=== PATIENT | male | born 1970 | race Caucasian/White ===

== ENCOUNTER 2016-06-05 00:53 | Emergency (ER) | payer SELFPAY ==
--- NOTE | 2016-06-05 03:06 | ER Document Report ---
ED Neck/Back Problem - General Chief Complaint: Low Back Pain Stated Complaint: LOWER BACK INJURY Time seen by provider: 03:05 Mode of Arrival: Ambulatory Information source: Patient Notes: 46-year-old male presents to ED for back pain since Friday. He states he tripped over a root on the ground Friday and the back pain started Friday or Friday. No history of back pain in the past. Denies any incontinence of urine or stool denies any Problems Urinating or Having Bowel Movements. Denies Any Saddle Anesthesia. TRAVEL OUTSIDE OF THE [place] IN LAST 30 DAYS: No - HPI Patient complains to provider of: Pain, Lower back Onset: Last week Where: Home, Outdoors Onset: Gradual Timing: Still present Quality of pain: Sharp Severity: Moderate Pain Level: 4 Context: Fall/near-fall - On Friday last week Recent injury: Possibly Associated symptoms: Radiation to leg - Left leg, Lower back pain. denies: Constipation, Incontinence, Motor loss, Numbness/tingling, Sensory loss, Unable to urinate Exacerbated by: Movement of trunk Relieved by: Nothing Similar symptoms previously: No Recently seen / treated by doctor: No - Related Data Allergies/Adverse Reactions: azithromycin [From Zithromax Z-Demarcus] Allergy (Mild, Verified 06/05/16 01:22) cyclobenzaprine [From Flexeril] Allergy (Mild, Verified 06/05/16 01:22) ketorolac [From Toradol] Allergy (Mild, Verified 06/05/16 01:23) tramadol [From Ultram] Allergy (Mild, Verified 06/05/16 01:22) Past Medical History - General Information source: Patient - Social History Smoking Status: Current Every Day Smoker Cigarette use (# per day): Yes - pack per day Chew tobacco use (# tins/day): No Smoking Education Provided: Yes - less than 2 minutes Frequency of alcohol use: None Drug Abuse: None Occupation: none Lives with: Family Family History: CAD, CVA, Hyperlipidemia, Hypertension, Malignancy, Thyroid Disfunction Patient has suicidal ideation: No Patient has homicidal ideation: No - Past Medical History Cardiac Medical History: Reports: None Pulmonary Medical History: Reports: None EENT Medical History: Reports: None Endocrine Medical History: Reports: None Renal/ Medical History: Reports: None Malignancy Medical History: Reports None GI Medical History: Reports: None Musculoskeltal Medical History: Reports None Skin Medical History: Reports None Psychiatric Medical History: Reports: None Traumatic Medical History: Reports: None Infectious Medical History: Reports: None Surgical Hx: Negative Past Surgical History: Reports: None Review of Systems - Review of Systems Constitutional: No symptoms reported EENT: No symptoms reported Cardiovascular: No symptoms reported Respiratory: No symptoms reported Gastrointestinal: No symptoms reported Genitourinary: No symptoms reported Male Genitourinary: No symptoms reported Musculoskeletal: Back pain, Muscle pain, Muscle stiffness Skin: No symptoms reported Hematologic/Lymphatic: No symptoms reported Neurological/Psychological: No symptoms reported -: Yes All other systems reviewed and negative Physical Exam - Vital signs Vitals: Temp Pulse Resp BP Pulse Ox 98.9 F 81 20 122/55 L 99 06/05/16 01:06/05/16 01:29 06/05/16 01:29 06/05/16 01:06/05/16 01:29 Interpretation: Normal - General General appearance: Appears well, Alert - HEENT Head: Normocephalic, Atraumatic Eyes: Normal Pupils: PERRL - Respiratory Respiratory status: No respiratory distress Chest status: Nontender Breath sounds: Normal Chest palpation: Normal - Cardiovascular Rhythm: Regular Heart sounds: Normal auscultation Murmur: No - Abdominal Inspection: Normal Distension: No distension Bowel sounds: Normal Tenderness: Nontender Organomegaly: No organomegaly - Back Back: Normal, Vertebra tenderness. No: Deformity/step-off, CVA tenderness, Scars, Scoliosis, Wounds - Extremities General upper extremity: Normal inspection, Nontender, Normal color, Normal ROM , Normal temperature General lower extremity: Normal inspection, Nontender, Normal color, Normal ROM , Normal temperature, Normal weight bearing. 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 Written report given to patient. Patient treated with a dispense pack of hydrocodone instructed to find a primary doctor to follow-up with. Patient encouraged to do back exercises use ice and heat and Tylenol and use the hydrocodone only for severe pain. - Vital Signs Vital signs: Temp Pulse Resp BP Pulse Ox 97.6 F 68 16 107/62 98 06/05/16 04:22 06/05/16 04:22 06/05/16 04:22 06/05/16 04:06/05/16 04:22 - Diagnostic Test Radiology reviewed: Image reviewed, Reports reviewed Discharge - Discharge Clinical Impression: Low back pain Qualifiers: Chronicity: acute Back pain laterality: bilateral Sciatica presence: with sciatica Sciatica laterality: sciatica of left side Qualified Code(s): M54.42 - Lumbago with sciatica, left side Condition: Stable Disposition: HOME, SELF-CARE Instructions: Stretching Exercises for the Back ([facility]), Family Physicians / Practices Additional Instructions: LOW BACK PAIN: Three out of every four people will have an episode of disabling back pain during their lifetime. Most commonly the pain is due to straining of the muscles and ligaments in the low back. Usual treatment includes: (1) Rest on a firm surface. Avoid lying on your stomach. (2) Ice pack the painful area. After a few days, gentle heat may be used intermittently to relax the area, or ice packs can be continued. (3) Medication may be needed -- muscle relaxers and antiinflammatory medicines are commonly used. (4) As the back improves, exercises are prescribed to strengthen the back and abdominal muscles. Your doctor will advise you on the proper care for your back at each stage in your recovery. You may be better in a few days -- or healing may take several weeks. If new symptoms of a "herniated disc" (radiation of pain, numbness, or tingling down the back of the leg or weakness in the leg) occur, you should be re-examined. Further testing may be necessary. ORAL NARCOTIC MEDICATION: You have been given a prescription for pain control. This medication is a narcotic. It's best taken with food, as nausea can result if taken on an empty stomach. Don't operate machinery or drive within six hours of taking this medication. Do not combine this medicine with alcohol, or with any medication which can cause sedation (such as cold tablets or sleeping pills) unless you get permission from the physician. Narcotics tend to cause constipation. If possible, drink plenty of fluids and eat a diet high in fiber and fruits. Please be aware that prescription narcotics also have the potential for abuse. People become addicted to these medications because of the general sense of wellbeing that they induce. This feeling along with a significant reduction in tension, anxiety, and aggression provides a stimulating seductive quality to these drugs. Once your pain is under control, we encourage you to discard your unused narcotics. ICE PACKS: Apply ice packs frequently against the painful area. Many different schedules are recommended, such as "20 minutes on, 20 minutes off" or "one hour ice, two hours rest." If you need to work, you may need to go longer between ice treatments. You should plan to have the area ice packed AT LEAST one fourth of the time. The ice should be applied over the wrap, tape, or splint, or over a layer of cloth -- not directly against the skin. Some ice bags have a built-in cloth and can be put directly on the skin. WARM PACKS: After approximately two days, apply gentle heat (such as a heating pad or hot water bottle) for about 20 to 30 minutes about every two hours -- at least four times daily. Warmth and elevation will help you make a more rapid recovery , and will ease the pain considerably. Do not use HOT heat, and never apply heat for longer than 30 minutes. The continuous heat can invisibly damage skin and muscles -- even when no burn is seen on the surface. Damaged muscles can make you MORE sore. FOLLOW-UP CARE: If you have been referred to a physician for follow-up care, call the physician s office for an appointment as you were instructed or within the next two days. If you experience worsening or a significant change in your symptoms, notify the physician immediately or return to the Emergency Department at any time for re-evaluation. Forms: Smoking Cessation Education
[2016-06-05] MEDS ORDERED: HYDROCODONE/ACETAMINOPHEN 5-325 MG 6 TAB/DSPK PO PRN (03:55)
[2016-06-05 04:23] VITALS: BP 107/62
== END 2016-06-05 04:21 | disposition home or self-care (01) ==
LOC: ER 00:53
DX: M54.42 Lumbago with sciatica, left side (principal); F17.210 Nicotine dependence, cigarettes, uncomplicated; Z88.6 Allergy status to analgesic agent; Z88.3 Allergy status to other anti-infective agents
CPT/HCPCS: 72110; 99283